=== PATIENT | male | born 1965 | race Caucasian/White ===

== ENCOUNTER → 2017-11-18 | Outpatient (CLI) | payer SELFPAY ==
--- NOTE | 2017-11-18 18:46 | CT ---
CT Calcium Score Clinical information: 52-year-old male for coronary artery disease risk assessment. Comparison: None. ECG Gating: Prospective Scan range: Pulmonary artery bifurcation to diaphragm. Findings: Examination quality: Good. Limitation: None. Total calcium score: 235 Total volume score: 206 mm3 Percentile: 75-90 % Artery scores Left main coronary artery: 100 Left anterior descending artery: 84 Left circumflex artery: 41 Right coronary artery: 10 Other findings: Coronary arteries: Calcific atherosclerotic plaque within the visualized coronary arteries. Predomina ntly on the left. Cardiac chambers: Unremarkable. Cardiac valves: Unremarkable. Thoracic aorta: Unremarkable. Lungs: Unremarkable. Upper abdomen: Unremarkable. Impression: Total calcium score 235. This implies definite moderate atherosclerotic plaque with mild coronary dis ease highly likely and moderate risk of future cardiovascular event. Reported By:
== END ==
LOC: RAD 10:19
PROVIDERS: ATTEND Nurse Practitioner Family
DX: Z13.6 Encounter for screening for cardiovascular disorders (principal)